=== PATIENT | male | born 1960 | race African-American/Black ===

== ENCOUNTER 2019-03-24 02:22 | Inpatient (IN) | payer OTHER ==
[~2019-03-24] VITALS: Ht 182.9 cm; Wt 65.6 kg
[2019-03-24] VITALS (21 sets, daily range): BP systolic 94–143; BP diastolic 65–103
[2019-03-24 02:35] LABS: BE(vivo) 3.5 mmol/L (-2 to +3); HCO3 29.1 mmol/L (22.0-26.0); PCO2 47.7 mmHg (35.0-45.0); PO2 78.5 mmHg (80.0-100.0); pH 7.403 (7.360-7.450); sO2 95.5 % (92.0-98.0)
[2019-03-24] MEDS ORDERED: ACETAMINOPHEN PER TUBE (02:37)
[2019-03-24] MEDS ORDERED: OZOBAX5 MG/5 ML PER TUBE (02:38)
[2019-03-24] MEDS ORDERED: BISACODYL10 MG RECTAL (02:39)
[2019-03-24] MEDS ORDERED: CARVEDILOL25 MG PER TUBE (02:40)
[2019-03-24] MEDS ORDERED: CHLORTHALIDONE25 MG PER TUBE (02:40)
[2019-03-24] MEDS ORDERED: CLONIDINE HCL0.2 M2 PER TUBE (02:41)
[2019-03-24] MEDS ORDERED: CARDIZEM SR 60M60 MG PER TUBE (02:42)
[2019-03-24] MEDS ORDERED: FAMOTIDINE 20 M20 MG PER TUBE (02:43)
[2019-03-24] MEDS ORDERED: DULCOLAX STOOL100 M1 PER TUBE (02:43)
[2019-03-24] MEDS ORDERED: GABAPENTIN300 MG/6 M PER TUBE (02:44)
[2019-03-24] MEDS ORDERED: FOLIC ACID1 MG PER TUBE (02:44)
[2019-03-24] MEDS ORDERED: ADULT WAL-100 MG/5 M PER TUBE (02:45)
[2019-03-24] MEDS ORDERED: LISINOPRIL2.5 MG PER TUBE (02:46)
[2019-03-24] MEDS ORDERED: HYDRALAZINE 2525 M1 PER TUBE (02:46)
[2019-03-24] MEDS ORDERED: LORAZEPAM 1 MG T1 MG PER TUBE ×2 (02:47)
[2019-03-24] MEDS ORDERED: MIRALAX119 GM PER TUBE (02:48)
[2019-03-24] MEDS ORDERED: SENNA8.8 MG/5 M PER TUBE (02:49)
[2019-03-24] MEDS ORDERED: TRANSDERM-SCOP1 EACH TRANSDERM (02:49)
[2019-03-24] MEDS ORDERED: SERTRALINE HCL100 MG PER TUBE (02:50)
[2019-03-24 03:05] LABS: URINE BILIRUBIN NEGATIVE (Negative); URINE BLOOD NEGATIVE (Negative); URINE CLARITY CLEAR; URINE COLOR YELLOW; URINE GLUCOSE-RANDOM* NEGATIVE (Negative); URINE KETONES NEGATIVE (Negative); URINE LEUKOCYTES-REFLEX NEGATIVE (Negative); URINE NITRITE-REFLEX NEGATIVE (Negative); URINE PROTEIN (DIPSTICK) TRACE (Negative); URINE SPECIFIC GRAVITY >= 1.030 (1.005-1.035)
[2019-03-24 03:07] LABS: HEMATOCRIT 38.8 % (42.0-52.0); HEMOGLOBIN 12.9 gm/dL (14.0-18.0); MCH 29.2 pg (26.0-34.0); MCHC 33.3 g/dL (28.0-37.0); MCV 87.8 fL (80.0-100.0); PLATELET COUNT 319 thou/uL (150-400); RBC 4.41 mil/uL (4.50-6.00); RDW 15.8 % (10.5-14.5); WBC 10.8 thou/uL (4.0-11.0)
[2019-03-24 03:09] LABS: CALCIUM 9.8 mg/dL (8.5-10.1); CREATININE 1.1 mg/dL (0.7-1.3); POTASSIUM 3.6 mmol/L (3.5-5.1)
[2019-03-24 03:15] LABS: ALBUMIN 2.8 g/dL (3.4-5.0); TOTAL BILIRUBIN 0.4 mg/dL (<0.1-1.0); TOTAL PROTEIN 8.7 g/dL (6.4-8.2)
[2019-03-24 04:14] LABS: ABSOLUTE NEUTROPHILS 7.7 thou/uL (1.4-8.2); LARGE PLATELETS OCCASIONAL
--- NOTE | 2019-03-24 07:55 | NUR ---
ADMISSION NOTE: PT ADMITTED FROM ER IN FAIR CONDITION. DROSWY, BUT WEAKLY SQEEZED WITH HIS RIGHT HAND. LEFT SIDED WEAKNESS NOTED, PT CONTRACTED ON LEFT SIDE. INTUBATED ON THE VENT, TOLERATING VENT SETTINGS. COPIOUS SECRETION SUCTIONED. NO APPARENT PAIN. VSS. STARTED ON PROPOFOL FOR SEDATION WHILE ON THE VENT. SHAW IN PLACE, AND OUTPUT NOTED. CURRENLY RESTRAINTED. WILL CONTINUE TO MONITOR.
[2019-03-24 10:19] LABS: CLARITY TURBID; SOURCE BRONCH LAVAGE; TOTAL VOLUME 10 mL
--- NOTE | 2019-03-24 13:22 | EKG ---
[address] [address] ELECTROCARDIOGRAM REPORT Name: LUDIN YODER Room #: 237-P ADM IN M.R.#: [id number] Admission: 03/24/19 Attend Phys: Hieu Zhong MD Discharge: Date of : 64 Report #: [id number] REPORT FOR: //name// [facility] ED Test Date: 2019-03-24 Test Time: 02:35:32 Pat Name: LUDIN BEBA Department: Room: 237 P Gender: M Inventory Control Assistant: MICHELL : 1960 Requested By: Anali Saba Order Number: [id number] MD: Niko Banda Measurements Intervals [place] Rate: 133 P: 57 NH: 120 QRS: 106 QRSD: 81 T: 56 QT: 292 QTc: 435 Interpretive Statements Sinus tachycardia Right axis deviation No previous ECG available for comparison Electronically Signed On 03-24-2019 13:21:54 PROPOSAL CONSULTANT by Niko Banda [email or web address] <ELECTRONICALLY SIGNED> By: Niko Banda MD, [facility] 03/24/19 1321 [id number] 0235 Niko Banda MD, FACC /EPI
--- NOTE | 2019-03-24 19:16 | NUR ---
PATIENT ON LIGHT SEDATION, ABLE TO FOLLOW COMMANDS. BRONCHOSCOPY COMPLETED AT THE BEDSIDE, SPUTUM CULTURES SENT. SHAW PATIENT. PEG TUBE TO LOW INTERMITTENT SUCTION. FAMILY CONFERENCE COMPLETED WITH DR. FAUSTIN AT THE BEDSIDE. ONCE PATIENT IS STABALIZED THE PLAN IS TO TURN PEG TUBE INTO J TUBE. FAMILY VOICED CONCERNS ABOUT PATIENT RETURNING TO PREVIOUS FACILITY, GEOMATICS PROFESSOR CONSULTED. NO SIGNS OF ACUTE DISTRESS NOTED AT THIS TIME. WILL CONTINUE TO MONITOR.
--- NOTE | 2019-03-24 21:40 | NUR ---
SEDATION VACATION PERFORMED AT 2130, PROPOFOL TURNED OFF FOR APPROXIMATELY 10 MINUTES. PT ABLE TO FOLLOW SIMPLE COMMANDS. ABLE TO SQUEEZE WITH RIGHT HAND. MOVES RIGHT LEG AND ARM. MINIMAL MOVEMENT OF THE LEFT LEG. RIGHT ARM CONTRACTED. ABLE TO OPEN EYES TO COMMAND. NO APPARENT PAIN. TOLERATING VENT SETTINGS. WILL CONTINUE TO MONITOR PT.
[2019-03-25] VITALS (24 sets, daily range): BP systolic 117–203; BP diastolic 79–138
[2019-03-25 03:05] LABS: GLYCOHEMOGLOBIN (HGB A1C) 6.9 % (4.8-5.6)
[2019-03-25 04:39] LABS: ABSOLUTE NEUTROPHILS 7.7 thou/uL (1.4-8.2); BASOPHILS 0.4 % (0.0-2.0); EOSINOPHILS 0.2 % (0.0-3.0); HEMATOCRIT 30.2 % (42.0-52.0); LYMPHOCYTES 10.6 % (24.0-44.0); MCHC 32.8 g/dL (28.0-37.0); MCV 88.2 fL (80.0-100.0); MONOCYTES 11.8 % (1.0-8.0); RBC 3.42 mil/uL (4.50-6.00); RDW 15.2 % (10.5-14.5)
[2019-03-25 04:42] LABS: HEMOGLOBIN 9.9 gm/dL (14.0-18.0); PLATELET COUNT 206 thou/uL (150-400)
[2019-03-25 05:05] LABS: BE(vivo) 1.4 mmol/L (-2 to +3); HCO3 26.2 mmol/L (22.0-26.0); PCO2 42.2 mmHg (35.0-45.0); PO2 158.9 mmHg (80.0-100.0); pH 7.411 (7.360-7.450); sO2 99.1 % (92.0-98.0)
[2019-03-25 05:08] LABS: CALCIUM 9.2 mg/dL (8.5-10.1); CREATININE 0.8 mg/dL (0.7-1.3); TOTAL BILIRUBIN 0.3 mg/dL (<0.1-1.0); TOTAL PROTEIN 6.5 g/dL (6.4-8.2)
[2019-03-25 05:12] LABS: POTASSIUM 2.7 mmol/L (3.5-5.1)
--- NOTE | 2019-03-25 10:11 | NUR ---
CM ASSESSMENT: CASE OPENED FOR DC PLANNING. CLINICAL INFO REVIEWED. PT ADMITS FROM [facility], ADMITTED TO LTC THERE 03/19/19 FROM [facility]. [facility] [facility] [facility] [place] WITH [place]P FAILURE AND TRACH/PEG. TRACH DECANNULATED AT [facility]. AT [facility], DEPENDENT FOR ADLS. SPOKE WITH PT'S RAJANIOA BROTHER KEEGAN THIS AM. DPOA INDICATES WANTS TO LOOK INTO POSSIBLE ALTERNATE LTC FACILITY FOR PT. EXPLAINED MEDICAID PENDING STATUS A BARRIER TO PLACEMENT BUT WILL LOOK INTO. DISCUSSED OTHER POSSIBLE FACILITIES. BROTHER STATES [facility] WAS ANOTHER CHOICE AND AGREEABLE TO REFERRAL BEING SENT. REQUESTED DC FULL ROLL INSPECTOR FAX REFERRAL TO [facility] ATTEMPTED TO UPDATE [facility] ADMISSIONS BUT NO ANSWER. PT'S BROTHER HAS NOT RULED OUT RETURNING TO [facility].
--- NOTE | 2019-03-25 10:12 | NUR ---
When tube feeds ready to start, recommend vital AF 1.2 at goal of 60ml/hr. When IVF discontinued, recommend 200ml water flushes every 6hr
[2019-03-25 14:09] LABS: BE(vivo) 0.9 mmol/L (-2 to +3); HCO3 25.4 mmol/L (22.0-26.0); PCO2 40.1 mmHg (35.0-45.0); PO2 108.4 mmHg (80.0-100.0)
--- NOTE | 2019-03-25 14:53 | NUR ---
FAXED CLINICAL UPDATE TO [facility] RECEIVED CONFIRMATION AND LEFT MSG WITH MIRELLA IN ADM THAT UPDATE FAXED. FAXED REFERRAL TO [facility] RECEIVED CONFIRMATION AND SPOKE WITH LYNDA IN ADM SHE IS GOING TO DO A BEDSIDE EVAL.
--- NOTE | 2019-03-25 20:00 | NUR ---
ON ARRIVAL ON SHIFT, PT WAS IN REPSIRATORY DISTRESS. SATS IN THE 80S ON 5L NC. PT WAS PLACED ON THE NRB 15L WITH THE HELP OF RT, PT UNABLE TO KEEP SATS ABOVE 92%, PT O2 SATS WERE IN THE 70S. DR. MAY WAS CALLED, ORDERS WERE RECIEVED FOR BIPAP. PT PLACED ON BIPAP 14/6, WITH FIO2 OF 100%, PT WAS SATS WERE STILL IN THE 70S. PT USING HIS ACCESSORY MUSCLES TO BREATHE, PT IN RESPIRATORY DISTRESS, HR IN THE 100S. ON AUSCULTATION, LUNGS WERE EXTREMELY DIMINISHE, MINIMAL AIR MOVEMENT AUSCULTATED. DR. MAY CALLED, ORDERS RECIEVED FOR PT TO BE INTUBATED BY ER DR. DR. ARIAS CALLED AND INFORMED ABOUT STATUS AND NEED FOR INTUBATION. PT WAS INTUBATED AT APPROXIMATELY 2000. COPIOUS SECRETIONS SUCTIONED FROM ET TUBE. DR. MAY CALLED AND INFORMED ABOUT PT STATUS POST INTUBATIONS ORDERS RECIEVED AND IMPLEMENTED. 2200 :PT CURRENTLY ON PROPOFOL FOR VENT MANAGMENT. TOLERATING VENT SETTING, NO SIGNS ON RESP DISTRESSED NOTED. CENTRAL LINE PLACED BY IV TEAM. CALLED AND INFORMED PT'S FAMILY ABOUT CHANGE IN PT'S HEALTH STATUS. WILL CONTINUE TO MONITOR.
[2019-03-25 21:21] LABS: BE(vivo) 1.8 mmol/L (-2 to +3); HCO3 25.7 mmol/L (22.0-26.0); PCO2 37.4 mmHg (35.0-45.0); PO2 352.8 mmHg (80.0-100.0); pH 7.455 (7.360-7.450); sO2 99.8 % (92.0-98.0)
--- NOTE | 2019-03-25 21:44 | NUR ---
CONSULTED TO PLACE A CENTRAL LINE FOR A PATIENT IN ICU POST INTUBATION. CONSENT PER MEDICAL NECESSITY AFTER ATTEMPTING TO CALL FAMILY. THE RIGHT IJ WAS WIDLEY PATENT. A #6F TRIPLE LUMEN POWER INJECTABLE JACC CENTRAL LINE WAS PLACED PER HOSPITAL POLICY AFTER A BEDSIDE TIMEOUT WAS COMPLETED. LINE WAS 25CM AND ADVANCED WITHOUT DIFFICULTY. A STAT CHEST XRAY WAS ORDERED TO CONFIRM PLACEMENT
[2019-03-26] VITALS (24 sets, daily range): BP systolic 117–157; BP diastolic 80–107
[2019-03-26 05:49] LABS: CALCIUM 9.1 mg/dL (8.5-10.1); CREATININE 0.7 mg/dL (0.7-1.3)
[2019-03-26 05:56] LABS: PROTIME 10.5 Seconds (9.3-11.4)
[2019-03-26 06:09] LABS: POTASSIUM 2.8 mmol/L (3.5-5.1)
--- NOTE | 2019-03-26 10:00 | NUR ---
PT EXTUBATED 03/25/19 IN AFTERNOON AND BECAME HYPOXIC REQUIRNG BIPAP THEN REINTUBATION AROUND 1999. RN NOTE INDICATES PT'S BROTHER UPDATED YESTERDAY. [facility] HAS REFERRAL AND WILL DO ON SITE EVAL AND REACHED OUT TO LYNDA FROM ADMISSIONS AWAITING RESPONSE.
--- NOTE | 2019-03-26 10:42 | NUR ---
ETT WAS ADVANCED 2CM BY RT PER DR MAY REQUEST. REPEAT CHEST XRAY ORDERED. WILL AWAIT RESULTS.
--- NOTE | 2019-03-26 16:06 | NUR ---
PT TO HAVE G TUBE SWITCHED TO JG TUBE TOMORROW. CONSENT WAS SIGNED BY DPOA EARLIER TODAY. HEPARIN TO BE HELD FOR 12 HOURS PRIOR TO PROCEDURE, NEXT TWO DOSES HELD IN COMPUTER.
[2019-03-27] VITALS (27 sets, daily range): BP systolic 118–152; BP diastolic 83–109
[2019-03-27 05:31] LABS: CALCIUM 8.7 mg/dL (8.5-10.1); CREATININE 0.7 mg/dL (0.7-1.3); POTASSIUM 3.4 mmol/L (3.5-5.1)
[2019-03-27 05:33] LABS: HEMATOCRIT 26.8 % (42.0-52.0); HEMOGLOBIN 8.9 gm/dL (14.0-18.0); MCH 29.1 pg (26.0-34.0); MCHC 33.1 g/dL (28.0-37.0); RBC 3.04 mil/uL (4.50-6.00); RDW 15.3 % (10.5-14.5); WBC 9.7 thou/uL (4.0-11.0)
--- NOTE | 2019-03-27 06:08 | NUR ---
No event tonight. Pt remains stable and continue to be on vent. No s/sx of any distress indicates. Diastolic BP are greater than 100 mmHg, gave 2 doses of hydralazine with good improvement. He is remains in NSR. Edema seems worsen. Continue to be NPO for procedure this am. All lines are inplaced. Continue working toward plan of cares.
[2019-03-28] VITALS (25 sets, daily range): BP systolic 108–169; BP diastolic 72–116
[2019-03-28 05:26] LABS: HEMOGLOBIN 8.9 gm/dL (14.0-18.0); MCH 29.1 pg (26.0-34.0); MCHC 32.9 g/dL (28.0-37.0); MCV 88.5 fL (80.0-100.0); RBC 3.05 mil/uL (4.50-6.00); RDW 15.3 % (10.5-14.5); WBC 9.4 thou/uL (4.0-11.0)
[2019-03-28 06:07] LABS: CALCIUM 8.7 mg/dL (8.5-10.1); CREATININE 0.6 mg/dL (0.7-1.3); POTASSIUM 3.7 mmol/L (3.5-5.1)
--- NOTE | 2019-03-28 06:34 | NUR ---
Pt remains stable this am. No event tonight. Continue to be on vent, secretion via ETT tonight. On TF, he is yaakov very well. Good urine output as chart per I/O intervention. Low grade temp. Diastolic BP still elevated, he was given hydralazine by previous RN with good effect. All lines remains inplace, w/o any complication indicates. Slowly progressing toward goals.
--- NOTE | 2019-03-28 09:07 | PATH ---
[facility] [address] [place] [address] PATHOLOGY RPT PROCEDURE Name: LUDIN YODER Room #: 237-P ADM IN M.R.#: [id number] Admission: 03/24/19 Date of : 64 Discharge: Report #: [id number] Path Case #: [id number] Note [facility] Accession Number: [id number] TESTS RESULT FLAG UNITS REF RANGE LAB Clinician Provided Cytology Information No. of containers..01 Other (Miscellaneous) Source: BAL DIAGNOSIS: 02 BAL NEGATIVE FOR MALIGNANT CELLS. PULMONARY MACROPHAGES (DUST CELLS) ARE PRESENT. PROTEINACEOUS MATERIAL IS PRESENT. MARKED ACUTE INFLAMMATION. Pathologist ICD10: 02 R41.82 Signed out by: Janis Harris MD, Pathologist NPI- [id number] Performed by: Danny Neil, Settlement Processor ([facility]) Gross description: 01 3ML, YELLOW, CLOUDY /LCS 05/07/1840 0000 Local FLAG LEGEND: L-Low Normal,H-High Normal,LL-Alert Low,HH-Alert High <-Panic Low,>-Panic High,A-Abnormal,AA-Critical Abnormal Performed at: 01 [facility] [address] [place] [address] Kayden Nicholson MD, [address] [address] Janis Harris MD, Specimen Comment: A courtesy copy of this report has been sent to [phone], [phone]- Specimen Comment: [id number], Specimen Comment: [id number] Specimen Comment: Report sent to ,DR MCKEON / DR FAUSTIN Specimen Comment: A duplicate report has been generated due to demographic updates. Performed at: [address] [address] PATHOLOGY RPT PROCEDURE Name: LUDIN YODER Room #: 237-P [facility] IN M.R.#: [id number] Admission: 03/24/19 Date of : 64 Discharge: Report #: [id number] Path Case #: [id number] [address], [place], [place] [id number] MD Kayden Nicholson MD Phone: [phone]
--- NOTE | 2019-03-28 10:25 | NUR ---
SEDATION VACATION PERFORMED WITH INCREASED OPENING OF EYES, RESTLESSNESS, PULLING RIGHT UPPER EXTREMITY UP TO ETT, FOLLOWING COMMANDS WITH R SIDED EXTREMITIES, SECRETIONS WHITE/BEIGE PER ETT, COPIOUS ORAL SECRETIONS, EXTREMELY DIAPHORETIC, BP 169/116. PT RESEDATED, THEN TOLERATING VENT AND RESTING COMFORTABLY.
--- NOTE | 2019-03-28 18:45 | NUR ---
rested comfortably with sedation, tolerating vent with copious oral secretions. very slow progress. report to Emy GARRETT.
[2019-03-29] VITALS (33 sets, daily range): BP systolic 112–157; BP diastolic 72–105
[2019-03-29 04:28] LABS: HEMATOCRIT 26.8 % (42.0-52.0); MCH 29.6 pg (26.0-34.0); MCHC 33.7 g/dL (28.0-37.0); MCV 87.8 fL (80.0-100.0); RBC 3.05 mil/uL (4.50-6.00); RDW 15.5 % (10.5-14.5); WBC 8.5 thou/uL (4.0-11.0)
[2019-03-29 04:40] LABS: CALCIUM 8.5 mg/dL (8.5-10.1); CREATININE 0.7 mg/dL (0.7-1.3); POTASSIUM 3.4 mmol/L (3.5-5.1)
--- NOTE | 2019-03-29 05:26 | NUR ---
Patient remains on the ventilator and sedated with Propofol. Patient awakens easily to voice. Patient VS remained stable and no acute events occurred. Patient continues to have large amounts of oral secretions. Hourly rounding completed and assessments charted per protocol.
--- NOTE | 2019-03-29 22:35 | NUR ---
Patient remains on the ventilator with Propofol infusing. Patient awakens when in room. Patient suctioned and continues to have large amounts of oral secretions. VS are stable and no distress is noted. Will continue to monitor.
[2019-03-30] VITALS (45 sets, daily range): BP systolic 107–164; BP diastolic 69–112
[2019-03-30 04:22] LABS: HEMATOCRIT 25.9 % (42.0-52.0); HEMOGLOBIN 8.5 gm/dL (14.0-18.0); MCH 28.8 pg (26.0-34.0); MCHC 32.8 g/dL (28.0-37.0); MCV 87.9 fL (80.0-100.0); RBC 2.94 mil/uL (4.50-6.00); RDW 15.5 % (10.5-14.5); WBC 8.3 thou/uL (4.0-11.0)
[2019-03-30 04:27] LABS: CALCIUM 8.6 mg/dL (8.5-10.1); CREATININE 0.6 mg/dL (0.7-1.3); POTASSIUM 3.2 mmol/L (3.5-5.1)
[2019-03-31] VITALS (43 sets, daily range): BP systolic 108–162; BP diastolic 71–110
[2019-03-31 03:45] LABS: HEMATOCRIT 26.4 % (42.0-52.0); HEMOGLOBIN 8.8 gm/dL (14.0-18.0); MCH 28.9 pg (26.0-34.0); MCHC 33.2 g/dL (28.0-37.0); MCV 86.9 fL (80.0-100.0); RBC 3.04 mil/uL (4.50-6.00); RDW 15.7 % (10.5-14.5); WBC 10.1 thou/uL (4.0-11.0)
[2019-03-31 03:53] LABS: CALCIUM 8.9 mg/dL (8.5-10.1); CREATININE 0.6 mg/dL (0.7-1.3); POTASSIUM 3.2 mmol/L (3.5-5.1)
--- NOTE | 2019-03-31 08:09 | NUR ---
PT FOLLOWING COMMANDS. PT HAVING LOT OF SECRETIONS THROUGHOUT THE NIGHT. TRACH AND PLACEMENT OF JG TUBE ON MONDAY. CHART CHECK. REPORT GIVEN TO TAMI KLINE. PT PROGRESSING SLOWLY TOWARDS GOALS.
--- NOTE | 2019-03-31 19:15 | NUR ---
ASSUMED CARE @ 1400, PT ASSESSMENT AND VSS COMPLETE PER ICU PROTOCOL. RN ENCOUNTERS GIRLFRIEND OF PT TAKING A PICTURE OF PT ON THE VENT, RN ADVISES PT'S GIRLFRIEND NOT TO TAKE A PICTURE OF PT BECAUSE HE CANNOT CONSENT TO THIS. PLAN OF CARE- CONT TO MONITOR.
[2019-04-01] VITALS (80 sets, daily range): BP systolic 101–155; BP diastolic 62–107
[2019-04-01 05:54] LABS: HEMATOCRIT 24.5 % (42.0-52.0); HEMOGLOBIN 8.2 gm/dL (14.0-18.0); MCH 29.4 pg (26.0-34.0); MCHC 33.4 g/dL (28.0-37.0); MCV 87.9 fL (80.0-100.0); RBC 2.79 mil/uL (4.50-6.00); RDW 15.3 % (10.5-14.5); WBC 10.9 thou/uL (4.0-11.0)
--- NOTE | 2019-04-01 06:00 | NUR ---
Patient remains on the ventilator and sedated with Propofol. Patient follows commands and weakly squeezes this RN's hand with his right hand. Left side is flaccid. Patient continues to have large amounts of secretions orally and through the midline. Patient placed NPO at midnight for trach placement today. Patient monitored closely for any acute changes during this shift. VS remained stable and no changes in status were noted.
[2019-04-01 06:10] LABS: CREATININE 0.6 mg/dL (0.7-1.3); POTASSIUM 3.6 mmol/L (3.5-5.1)
--- NOTE | 2019-04-01 15:51 | NUR ---
FOLLOWING FOR DC PLANNING. CLINICAL I NFO REVIEWED. PT HAD TRACHEOSTOMY PLACED TODAY. SPOKEWITH PT'S BROTHER/DPAO KEEGAN BY PHONE THIS AFTERNOON. DISCUSSED NEED FOR ANOTHER LTAC STAY AND OPTIONS [facility], OR [facility]. KEEGAN INDICATES HE WANTS PT TO RETURN TO [facility] HAD GOOD CARE THERE. REFERRAL FAXED AND WILL FOLLOW UP IN AM.
[2019-04-02] VITALS (31 sets, daily range): BP systolic 103–162; BP diastolic 66–95
--- NOTE | 2019-04-02 04:50 | NUR ---
NO OVERNIGHT EVENTS. PT. RESTING WELL WITH PROPOFOL GTT. INCREASED COUGHING WHEN SEDATION LOWERED. ASSESSMENTS AND VITAL SIGNS CHARTED. MEDICARTION TITRATION CHARTED. CONTINUE TO FOLLOW POC. WILL CONTINUE TO MONITOR.
[2019-04-02 05:46] LABS: HEMATOCRIT 23.3 % (42.0-52.0); HEMOGLOBIN 7.7 gm/dL (14.0-18.0); MCH 29.3 pg (26.0-34.0); MCHC 32.9 g/dL (28.0-37.0); RBC 2.62 mil/uL (4.50-6.00); RDW 15.7 % (10.5-14.5); WBC 11.3 thou/uL (4.0-11.0)
[2019-04-02 05:47] LABS: CALCIUM 8.8 mg/dL (8.5-10.1); CREATININE 0.6 mg/dL (0.7-1.3); POTASSIUM 3.5 mmol/L (3.5-5.1)
--- NOTE | 2019-04-02 13:56 | NUR ---
ON THE VENT PER TRACH, LIGHTLY SEDATED AND OPENS EYES AND FOLLOW SIMPLE COMMANDS. VITALS STABLE. TOLERATING TUBEFEEDING PER PEG TUBE WITH MINIMAL RESIDUALS. WILL CONTINUE WEANING DOWN SEDATION TOLERATED.
--- NOTE | 2019-04-02 16:29 | NUR ---
FAXED CLINICAL UPDATE TO [facility] RECEIVED CONFIRMATION AND SPOKE WITH MIRELLA IN ADM. DP TO FOLLOW.
[2019-04-03] VITALS (37 sets, daily range): BP systolic 114–171; BP diastolic 62–117
--- NOTE | 2019-04-03 07:00 | NUR ---
NO CHANGES OVERNIGHT. PT TRACHED AND ON VENT. ON PROPOFOL GTT FOR SEDATION, BUT ATTEMPTING TO WEAN-TITRATING DOWN SLOWLY. PT BECAME HYPERTENSIVE THIS MORNING WITH SBP >160 AND DBP >100; HYDRALAZINE GIVEN. WILL CONTINUE TO MONITOR.
--- NOTE | 2019-04-03 11:53 | NUR ---
ON THE VENT PER TRACH, FOLLOWS SIMPLE COMMANDS. VITALS STABLE, HYPERTENSIVE AT TIMES-ANTIHYPERTENSIVES ADMINISTERED. TUBEFEEDING PLACED ON HOLD IN ANTICIPATION OF PLACEMENT OF G/J TUBE BY I.R. WEANING DOWN PROPOFOL TOLERATED. WILL CONTINUE WITH POC.
--- NOTE | 2019-04-03 13:25 | NUR ---
[facility] HAS ACCEPTED PT FOR [facility] STAY. UPDATED [facility] LIALUCY THIS AM. NEW TRACH, ON VENT, WEANING PROPOFOL GTT. PLANS FOR PEG TO BE EXCHANGED FOR J TUBE IN IR. UPDATED PT'S BROTHER KEEGAN. [facility] CAN ACCEPT PT Monday04/05/19 IF MEDICALLY READY.
--- NOTE | 2019-04-03 14:08 | NUR ---
PT TO HAVE FEEDING TUBE EXCHANGFEE TO J TUBE THIS AFTERNOON IN IR. PLANNING FOR LTAC TRANSITION AT [facility] IF READY, ON Monday04/05/19. [facility] GISELLE GARCIA IS AGRONOMY SPECIALIST 04/05/19 AND CAN BE REACHED AT [phone] TO FACILITATE DC. PT WILL NEED TO GO BY [facility] APPROVED AMBULANCE TRANSPORT. REQUESTED ICU TRANSITIONAL CARE LIAISON/CARE SPECIALIST CPOY CHART FOR MONDAY. SPOKE WIT PT'S BROTHER/KB ALLISON BY PHONE AND UPDATED TO DC PLANS. KEEGAN INDICATES HE IS AGREEBALE TO DC MONDAY TO [facility]. RN UPDATED.
--- NOTE | 2019-04-03 15:17 | NUR ---
PATIENT WENT TO I.R. TO GET PEG TUBE EXCHANGED FOR G-J TUBE. CAME BACK AT 1500 WITH VITALS STABLE. TUBEFEEDING RESTARTED AT PREVIOUS RATE. WEANED OFF PROPOFOL AND IS AWAKE AND FOLLOWS SIMPLE COMMANDS.
[2019-04-04] VITALS (23 sets, daily range): BP systolic 105–151; BP diastolic 73–103
[2019-04-04 05:40] LABS: HEMOGLOBIN 7.6 gm/dL (14.0-18.0); MCH 29.1 pg (26.0-34.0); MCHC 33.2 g/dL (28.0-37.0); MCV 87.8 fL (80.0-100.0); RBC 2.62 mil/uL (4.50-6.00); RDW 15.7 % (10.5-14.5); WBC 11.1 thou/uL (4.0-11.0)
[2019-04-04 05:44] LABS: CALCIUM 8.8 mg/dL (8.5-10.1); CREATININE 0.6 mg/dL (0.7-1.3); POTASSIUM 3.1 mmol/L (3.5-5.1)
--- NOTE | 2019-04-04 07:47 | NUR ---
NO CHANGES OVERNIGHT. PT CONTINUES TO HAVE COPIOUS SECRETIONS AND REQUIRES FREQUENT SUCTIONING. TUBE FEEDINGS ARE INFUSING THROUGH NEW G-J TUBE. PT HAD MULTIPLE BMs OVERNIGHT. WILL CONTINUE TO MONITOR.
[2019-04-04 07:53] LABS: BE(vivo) 1.9 mmol/L (-2 to +3); HCO3 26.2 mmol/L (22.0-26.0); PCO2 39.4 mmHg (35.0-45.0); PO2 120.7 mmHg (80.0-100.0); sO2 98.5 % (92.0-98.0)
[2019-04-04 09:31] LABS: HCO3 29.2 mmol/L (22.0-26.0); PCO2 41.4 mmHg (35.0-45.0); PO2 114.4 mmHg (80.0-100.0); pH 7.466 (7.360-7.450); sO2 98.4 % (92.0-98.0)
[2019-04-04 19:52] LABS: MAGNESIUM 1.8 mg/dL (1.8-2.4); POTASSIUM 3.6 mmol/L (3.5-5.1)
[2019-04-05] VITALS (15 sets, daily range): BP systolic 111–159; BP diastolic 76–108
--- NOTE | 2019-04-05 07:36 | NUR ---
NO CHANGES OVERNIGHT. PT NOW ON T-TUBE PER TRACH AT 35% FIO2. LESS SECRETIONS THAN THE PRIOR NIGHT, BUT PT STILL REQUIRES FREQUENT SUCTIONING. PLAN IS FOR PT TO D/C TO [facility] TODAY. WILL CONTINUE TO MONITOR.
[2019-04-05] MEDS ORDERED: IPRAT-ALBUT 0.5-3 ML INH (13:30)
--- NOTE | 2019-04-05 14:11 | NUR ---
DISCHARGE NOTE: CHRYSTAL reviewed chart and spoke with nursing and attending physician. Updated clinical and therapy info faxed to [facility] for review per liaison's request. Liaison onsite earlier today and confirms [facility] is able to accept today. Leyla obtained [place] from [place] for pt to admit to [facility] today. CHRYSTAL updated attending physician. Discharge orders/summary finalized. CHRYSTAL faxed discharge info to [facility]. Confirmed info was received. CHRYSTAL arranged ambulance transportation via [facility] at 1600. Chart copy completed. CHRYSTAL provided nurse with number to call report. Pt's nurse to notify pt's brother of discharge time. No additional SW needs identified at this time, but is available to assist should needs arise.
--- NOTE | 2019-04-05 14:21 | NUR ---
WAS ON T-PIECE PER TRACH EARLIER. NOW ON THE VENT, VITALS STABLE AND HAS DENIED PAIN BY SHAKING HEAD. TOLERATING TUBEFEEDING PER G-J TUBE WITH NO RESIDUALS. SHAW WITH ADEQUATE OUTPUT. FECAL MANAGEMENT SYSTEM. DISCHARGE ORDERS RECEIVED. REPORT CALLED TO [facility] AT 1420. BROTHER NOTIFIED OVER THE PHONE THAT PATIENT WILL BE TRANSFERRED THIS AFTERNOON.
--- NOTE | 2019-04-05 16:31 | NUR ---
PATIENT PICKED UP BY EMS AT 1625 TO TRANSPORT TO [facility].
--- NOTE | 2019-04-15 07:55 | O ---
[facility] [address] [place] [address] OPERATIVE REPORT Name: BEBALUDIN Room #: 237-P [facility] IN .R.#: [id number] Admission: 03/24/19 Attend Phys: Hieu Zhong MD Discharge: 04/05/19 Date of : 64 Report #: [id number] THIS REPORT FOR: //name// CC: Ayden Cast DATE OF SERVICE: 04/01/2019 PREOPERATIVE DIAGNOSIS: Respiratory failure with ventilator dependence. POSTOPERATIVE DIAGNOSIS: Respiratory failure with ventilator dependence. OPERATIVE PROCEDURE: Tracheostomy using general endotracheal. DESCRIPTION OF PROCEDURE: The patient was taken to the operating room and placed in supine position. General anesthesia was induced via previously placed endotracheal tube. Once adequate general anesthesia was obtained, the midline neck skin and subcutaneous tissue was anesthetized with subcutaneous infiltration of 1% lidocaine with 1:100,000 epinephrine. The patient was then prepared and draped in a sterile manner. An incision was placed through a previous tracheostomy scar down through the skin and subcutaneous tissue. There was quite a bit of scar all the way down and not very many landmarks. I was able to find the strap muscles and then used them to find the midline down to the trachea. Tracheal opening was made bluntly and then bluntly dissected and widened to accept the tracheostomy tube. The previously placed endotracheal tube was brought out proximally and a #8 cuffed Shiley tracheostomy tube was placed into the trachea without difficulty. The patient was then ventilated in this manner. The tracheostomy tube was sewn to the chest with 0 Prolene suture and a trach tie was placed around the neck. The patient tolerated the procedure well. Blood loss was less than 2 mL. The patient was then taken to the Intensive Care Unit for postoperative monitoring. <ELECTRONICALLY SIGNED> By: Moshe Andino MD 04/15/19 [id number] Moshe Andino MD /nt
== END 2019-04-05 16:25 | DRG 4 ==
LOC: ER 02:22 → EROBS 04:30 → ICU 04:30
PROVIDERS: Emergency Medicine Emergency Medical Services; Hospitalist; Internal Medicine Pulmonary Disease; Nurse Practitioner Acute Care; Pediatrics; Radiology Vascular & Interventional Radiology; ADMIT Internal Medicine
PROC: 0B9J8ZX Drainage of Left Lower Lung Lobe, Via Natural or Artificial Opening Endoscopic, Diagnostic (ICD-10-PCS; principal; 2019-03-24)
PROC: 5A1955Z Respiratory Ventilation, Greater than 96 Consecutive Hours (ICD-10-PCS; principal; 2019-03-24)
PROC: 0BH18EZ Insertion of Endotracheal Airway into Trachea, Via Natural or Artificial Opening Endoscopic (ICD-10-PCS; principal; 2019-03-24)
PROC: 02HV33Z Insertion of Infusion Device into Superior Vena Cava, Percutaneous Approach (ICD-10-PCS; 2019-03-25)
PROC: 0B110F4 Bypass Trachea to Cutaneous with Tracheostomy Device, Open Approach (ICD-10-PCS; 2019-04-01)
PROC: 0D20XUZ Change Feeding Device in Upper Intestinal Tract, External Approach (ICD-10-PCS; 2019-04-03)
DX: J69.0 Pneumonitis due to inhalation of food and vomit (principal); J96.21 Acute and chronic respiratory failure with hypoxia; G92 Toxic encephalopathy; E46 Unspecified protein-calorie malnutrition; Z68.1 Body mass index [BMI] 19.9 or less, adult; I69.354 Hemiplegia and hemiparesis following cerebral infarction affecting left non-dominant side; Z99.11 Dependence on respirator [ventilator] status; F41.9 Anxiety disorder, unspecified; I10 Essential (primary) hypertension; K21.9 Gastro-esophageal reflux disease without esophagitis; F14.10 Cocaine abuse, uncomplicated; R73.9 Hyperglycemia, unspecified; R13.10 Dysphagia, unspecified; D64.9 Anemia, unspecified; I69.391 Dysphagia following cerebral infarction; Z93.0 Tracheostomy status; Z93.1 Gastrostomy status; Z79.899 Other long term (current) drug therapy
CPT/HCPCS: 10078; 50101; 50386; 50398; 50517; 56525; 56528; 62110; 62900